=== PATIENT | male | born 1980 | race Caucasian/White ===

== ENCOUNTER 2025-07-29 13:10 | Emergency (ER) | payer OTHER, SELFPAY ==
[2025-07-29] VITALS (9 sets, daily range): BP systolic 130–174; BP diastolic 85–90; PULSE 68–84; RESP 11–17; TEMP 37.1; O2SAT 94–99; BMI 18.4
--- OUTSIDE RECORDS SUMMARY | 2025-07-29 13:13 | XMS_ITS | Clinical Summary ---
Author Organization [facility] Address [address] [place] [id number] Care Team Providers Care Claims Adjuster Supervisor Name Role Phone Sabi Tirado MD Unavailable VotelBertrand MD Unavailable Clinic, No Pcp Or Primary Care Provider Unavaila ble Allergies No known active allergies Medications cyclobenzaprine (FLEXERIL) 10 mg tabletIndication s:Neck pain Take 1 Tablet (10 mg) by mouth 3 times daily if needed for Muscle Spasm. 30 Tablet 1 08/08/2024 Active metoprolol succinate (TOPROL XL) 50 mg sustained-releas e tabletIndication s:Hypertension, unspecified type TAKE 2 TABLETS(100 MG) BY MOUTH EVERY DAY 180 Tablet 2 10/14/2024 Active sertraline 50 mg tabletIndication s:Anxiety Take 1 Tablet (50 mg) by mouth once daily in the morning. 90 Tablet 1 02/17/2025 Active Active Problems Problem Noted Date Diagnosed Date Anxiety 05/11/2018 Gastroesophageal reflux disease without esophagi tis 11/22/2016 HTN (hypertension) 09/27/2012 Immunizations Immunization Administration Dates Next Due Hepatitis B (Adult) 11/22/2016,10/20/2016 Tdap 06/26/2007 Tuberculin (PPD) 10/25/2016,10/11/2016 Family History Medical History Relation Name Comments No Known Problems Brother No Known Problems Father No Known Problems Mother Hyperlipidemia No Family History Hypertension No Family History Relation Name Status Comments Brother Alive Father Alive Mother Alive Social History Tobacco Use Types Packs/Day Years Used Date Smoking Tobacco: Never Smokeless Tobacco: Never Tobacco Cessation:Counseling Given: Yes Alcohol Use Standard Drinks/Week Comments Yes 0 (1 standard drink = 0.6 oz pur e alcohol) occ PHQ-2 Answer Date Recorded PHQ-2 TOTAL SCORE 1 10/04/2023 Social Connections Answer Date Recorded Do you often feel lonely or isolated from those around you? 0 08/08/2024 Financial Resource Strain Answer Date R ecorded Difficulty of Paying Living Expenses 3 08/08/2024 Difficulty of Paying Living Expenses Not on file 08/08/2024 Food Insecurity Answer Date Recorded Do you worry your food will run out before you are able to buy more? 1 08/08/2024 Transportation Needs Answer Date Record ed Does lack of transportation keep you from medica l appointments? 1 08/08/2024 Does lack of transportation keep you from work, meetings or getting things that you need? 1 08/08/2024 Housing Stability Answer Date Recorded What is your housing situation today? 1 08/08/2024 Utilities Answer Date Recorded Do you have trouble paying f or utilities (for example, heat, electricity, water, phone)? 1 08/08/2024 Sex and Gender Information Value Date Recorded Sex Assigned at Not on file Legal Sex Male 5:47 AM HEALTHCARE CONSULTANT Gender Identity Not on file Sexual Orientation Not on file Occupation Industry Job Start Date Job End Date Not on file Not on file Not on file Not on file Obstetrics History Last Filed Vital Signs Vital Sign Reading Time Taken Comments Blood Pressure 123/81 08/08/2024 3:23 PM HEALTHCARE CONSULTANT Pulse 81 08/08/2024 3:23 PM HEALTHCARE CONSULTANT Temperature 36.7 C (98 F) 06/03/2020 2:26 PM CDT Respiratory Rate - - Oxygen Saturation 97% 08/08/2024 3:23 PM HEALTHCARE CONSULTANT Inhaled Oxygen Concentration - - Weight 108.9 kg (240 lb) 08/08/2024 3:23 PM HEALTHCARE CONSULTANT Height 186.7 cm (6' 1.5) 08/08/2024 3:23 PM HEALTHCARE CONSULTANT Body Mass Index 31.23 08/08/2024 3:23 PM HEALTHCARE CONSULTANT Plan of Treatment Upcoming Encounters Date Type Department Care Team (Late st Contact Info) Description 08/06/2025 4:35 PM HEALTHCARE CONSULTANT Office Visit [facility] [place] [address] Bertrand Russo MD [address] [place] [address] Health Maintenance Due Date Last Done Comments HIV for age 15-65 12/27/1994 HPV series for age 9-45 (1 - 3-dose SCDM series) 12/27/2006 Hepatitis B series for 19+ (3 of 3 - 19+ 3-dose series) 04/19/2017 11/22/2016, 10/20/2016 Tetanus booster 06/26/2017 06/26/2007 Depression screening for age 12+ 10/04/2024 10/04/2023, 08/05/2022, 07/01/2021, Additional history exists Colonoscopy through age 75 12/27/2024 COVID-19 vaccine series ( season) 2025 Influenza Vaccine (#1) 2025 BMI (ht and wt on same day) for age 18+ 08/08/2025 08/08/2024, 11/02/2023, 10/04/2023, Additional history exists Lipids for age 45-75 10/04/2028 10/04/2023, 06/03/2020, 06/03/2020, Additional history exists RSV vaccine for adults or (1 - 1-dose 75+ series) 12/27/2054 Hepatitis C screening for age 18-79 Completed 05/25/2011 Pneumococcal series for age 6-49 Aged Out No longer eligible based on patient's age to complete this topic Procedures Procedure Name Priority Date/Time Associated Diagnosis Comments LIPID PANEL W REFLEX MEASURED LDL Routine 10/04/2023 4:38 PM HEALTHCARE CONSULTANT Hypertension, unspecified type ANTI HCV Routine 05/25/2011 7:04 AM CDT Abnormal laboratory test result from Last 3 Months or Most Recently Relevant to Health Maintenance Results * (ABNORMAL) LIPID PANEL W REFLEX MEASURED LDL (10/04/2023 4:38 PM HEALTHCARE CONSULTANT) CHOLESTEROL,TOTAL 264(H) 100 - 199 mg/dL 10/05/2023 2:38 PM HEALTHCARE CONSULTANT [facility] Comment: Cholesterol, Total Reference Ranges Desirable <200 mg/dL Borderline 200-239 mg/dL High >=240 mg/dL TRIGLYCERIDES 346(H) <150 mg/dL 10/05/2023 2:38 PM HEALTHCARE CONSULTANT [facility] HDL CHOLESTEROL 39(L) >40 mg/dL 2:38 PM HEALTHCARE CONSULTANT [facility] NON-HDL CHOLESTEROL 225(H) <145 mg/dl 10/05/2023 2:38 PM HEALTHCARE CONSULTANT [facility] CHOL/HDL RATIO 6.77(H) <4.50 10/05/2023 2:38 PM HEALTHCARE CONSULTANT [facility] LDL CHOLESTEROL 156(H) <=130 mg/dL 10/05/2023 2:38 PM HEALTHCARE CONSULTANT [facility] VLDL CHOLESTEROL 69(H) <=30 mg/dL 10/05/2023 2:38 PM HEALTHCARE CONSULTANT [facility] PROVIDER ORDERED STATUS RANDOM 10/05/2023 2:38 PM HEALTHCARE CONSULTANT [facility] Blood BLOOD SPECIMEN / Unknown Venipuncture / Unknown 10/04/2023 4:38 PM HEALTHCARE CONSULTANT 10/04/2023 4:38 PM HEALTHCARE CONSULTANT us Bertrand Russo MD CHEMISTRY Final Re sult [facility] [address] [place] [address], * ANTI HCV (05/25/2011 7:04 AM CDT) ANTI HCV Non-reacti ve [facility] Blood specimen (specimen) BLOOD SPECIMEN / Unknown 05/25/2011 7:04 AM CDT 05/25/2011 7:00 AM CDT us Nilsa Sterling MD SEND OUTS Fi nal Result [facility] [place]NAL ZIP [phone] [id number] from Last 3 Months or Most Recently Relevant to Health Maintenance Insurance [employer] Care Teams Claims Adjuster Supervisor Relationship Specialty Start Date End Date Clinic, No Pcp Or . PCP - General 10/20/22 Sabi Tirado MD Neurology Neurology 07/26/12 Bertrand Russo MD [address] [place] [address] Family Practice 10/20/22
--- NOTE | 2025-07-29 13:31 | ED.GENADULT ---
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 Since then he has been noticing some palpitations. He sometimes feels some sharp chest pains with these but he is not sure if that is just because he is thinking about it and gets nervous. He does not feel short of breath, lightheaded, has not had any fainting. No difference in exercise tolerance, exercises regularly without difficulty. Denies other symptoms such as fevers, weight loss, vomiting, diarrhea, black or bloody stools. Does not smoke or drink, denies any substances. No significant caffeine/energy drink use. He notices symptoms mostly when he is laying in bed or sitting quietly. They improve when he stops thinking about and focusing on it. Related Data Home Medications ?Medication ?Instructions ?Recorded ?Confirmed metoprolol succinate 50 mg 50 mg PO BID 07/29/25 07/29/25 tablet,extended release 24 hr sertraline 50 mg tablet 50 mg PO DAILY 07/29/25 07/29/25 Allergies Allergy/AdvReac Type Severity Reaction Status Date / Time No Known Drug Allergies Allergy Verified 07/29/25 13:18 Review of Systems Status of ROS: Reports: 10 or more systems reviewed and unremarkable except as noted in History and below [facility] Social History Smoking Status: Never smoker How often do you have a drink containing alcohol: monthly or less AUDIT-C Alcohol total score: 1 Non-prescribed substance use: denies use Exam Narrative: Exam Narrative: Vital signs reviewed In general, an alert, nontoxic manage male. Head: Normocephalic, atraumatic. Eyes: Sclera clear. Pupils equal and reactive. ENT: Mucous membranes moist. Neck: Supple without adenopathy. Heart: Regular rate and rhythm without murmur. Lungs: Clear. No increased work of breathing, crackles or wheezes. Abdomen: Soft, nontender to palpation. Extremities: Well perfused, pulses intact. No significant edema. Neurologic: Alert, conversant. Speech fluent, face symmetric. Moves all extremities equally. Skin: Warm, dry well perfused. Affect: Anxious. Const: Vital Signs, click to edit/add: Vital Signs - 24 hr 07/29/25 13:13 07/29/25 13:31 07/29/25 13:32 Temperature 98.8 F Pulse Rate Pulse Rate [Pulse Oximeter] 84 Respiratory Rate 16 16 Blood Pressure Blood Pressure [Ri ght Upper Arm] 174/90 H Pulse Oximetry 99 96 Oxygen Delivery Me thod 07/29/25 13:45 07/29/25 14:00 07/29/25 14:15 Temperature Pulse Rate 80 76 73 Pulse Rate [Pulse Oximeter] Respiratory Rate 14 17 11 L Blood Pressure Blood Pressure [Ri ght Upper Arm] Pulse Oximetry 96 94 94 Oxygen Delivery Me thod 07/29/25 14:30 07/29/25 14:45 07/29/25 14:52 Temperature Pulse Rate 73 68 82 Pulse Rate [Pulse Oximeter] Respiratory Rate 14 13 14 Blood Pressure 130/85 Blood Pressure [Ri ght Upper Arm] Pulse Oximetry 95 95 97 Oxygen Delivery Me thod Room Air Course Course ED Course: On arrival patient had an EKG which by my review shows a sinus rhythm, frequent PVCs. Ventricular rate of 88. No acute ST segment changes, unremarkable T-waves. Reviewed with him that his presentation sounds very suggestive of PVCs which are not dangerous but can be annoying. Will do some basic labs to rule out electrolyte abnormality, myocarditis, metabolic derangement. Maintain on monitor while here to make sure we do not see any signs of significant strings of PVCs, or other arrhythmia such as atrial fibrillation RP SVT. Notably, his watch has not picked up any significant changes in heart rate. Patient was maintained on the monitor here, we saw frequent PVCs but do not see any other arrhythmias. Labs are reviewed in their entirety and are normal. Reviewed with him that I suspect his sensation of palpitations or coming from these PVCs. We discussed that these are not harmful, he is already on metoprolol 50 mg a day as well as sertraline, for now I have encouraged him to continue those medications. Because he has been having this little bit of chest pain and is concerned about possibly blockages, I am ordering a stress test with results to be discussed with primary care at a follow-up appointment in the next week or so. Return any time for worsening or new symptoms such as fainting, severe persistent chest pain, significant shortness of breath etcetera. Diagnosis: PVCs. Palpitations. Chest pain. Vital Signs Vital signs: Initial Vital Signs Temperature 98.8 F 07/29/25 13:13 Temperature Source Temporal Artery Scan 07/29/25 13:13 Pulse Rate 84 07/29/25 13:13 Respiratory Rate 16 07/29/25 13:13 Blood Pressure 174/90 H 07/29/25 13:13 Blood Pressure Mean 118 H 07/29/25 13:13 Pulse Oximetry 99 07/29/25 13:13 Vital Signs Temperature 98.8 F 07/29/25 13:13 Pulse Rate 84 07/29/25 13:13 Respiratory Rate 16 07/29/25 13:13 Blood Pressure 174/90 H 07/29/25 13:13 Pulse Oximetry 99 07/29/25 13:13 Temperature 98.8 F 07/29/25 13:13 Pulse Rate 82 07/29/25 14:52 Respiratory Rate 14 07/29/25 14:52 Blood Pressure 130/85 07/29/25 14:52 Pulse Oximetry 97 07/29/25 14:52 Oxygen Delivery Method Room Air 07/29/25 14:52 Medical Decision Making Lab Data Labs: Lab Results 07/29/25 Range/Units 13:40 WBC 7.17 (4.50-11.00) K/uL RBC 5.26 (4.30-5.90) m/uL Hgb 15.6 (13.5-17.5) gm/dL Hct 44.9 (37.0-53.0) % MCV 85 (80-100) fL MCH 30 (26-34) pg MCHC 35 (32-36) gm/dL RDW Coeff of Penelope 11.6 (11.5-15.5) % Plt Count 246 (140-440) K/uL Neut % (Auto) 64.6 (42.0-72.0) % Lymph % (Auto) 24.7 (20-44) % [place] % (Auto) 8.2 (0.0-11.0) % Eos % (Auto) 1.8 (0.0-7.0) % Baso % (Auto) 0.4 (0.0-3.0) % Neut # (Auto) 4.63 (1.7-7.0) K/uL Lymph # (Auto) 1.77 (0.90-2.90) K/uL [place] # (Auto) 0.60 (0.00-0.90) K/UL Eos # (Auto) 0.13 (0.00-0.50) K/uL Baso # (Auto) 0.03 (0.00-0.30) K/uL Abs Immat Gran (auto) 0.02 (0.00-0.30) K/uL Imm/Tot Granulo (auto) 0.3 % Sodium 136 (135-149) mmol/L Potassium 3.9 (3.6-5.1) mmol/L Chloride 98 (96-114) mmol/L Carbon Dioxide 26 (20-32) mmol/L Anion Gap 12 (7-15) mEq/L BUN 12 (5-24) mg/dL Creatinine 1.1 (0.5-1.5) mg/dL Estimated Creat Clear 75.74 Estimated GFR 84 ml/min Glucose 107 (60-115) mg/dL Calcium 9.4 (8.4-10.6) mg/dL Magnesium 1.8 (1.5-2.6) mg/dL Total Bilirubin 0.9 (0.1-1.5) mg/dL AST 32 (12-35) U/L ALT 44 (4-50) U/L Alkaline Phosphatase 68 (40-150) U/L Troponin I < 0.01 (0.01-0.04) ng/mL Total Protein 7.5 (6.0-8.3) g/dL Albumin 4.6 (3.3-5.0) g/dL TSH 1.260 (0.270-4.200) uIU/mL Discharge Plan Discharge Clinical Impression: Frequent PVCs Patient Disposition: Home, Self-Care Condition: Stable Instructions: Premature Ventricular Contractions (ED) Additional Instructions: Your workup today does not show any concerning findings. Your electrolytes, heart function, kidney function etcetera are all normal. On the monitor, we see frequent premature ventricular contractions which I think is almost certainly the reason you are feeling what you are feeling. These are not dangerous and do not indicate a problem with your heart. For now I would continue your metoprolol. Because you have been having a little bit of chest pain, I am going to order a stress test. Please follow-up with your primary doctor to discuss results of your stress test. If you have new symptoms such as severe or persistent chest pain, shortness of breath, fainting, return to the emergency department at any time. Prescriptions: No Action metoprolol succinate 50 mg tablet extended release 24 hr 50 mg PO BID sertraline 50 mg tablet 50 mg PO DAILY Follow Up/Referrals: Bertrand Russo MD [Primary Care Provider, Family Practice] Stand Alone Forms: [place] Info Instructions
[2025-07-29 13:58] LABS: Hematocrit* 44.9 % (37.0-53.0); Hemoglobin* 15.6 gm/dL (13.5-17.5); Immature Granulocytes Abs Auto 0.02 K/uL (0.00-0.30); Immature Granulocytes Pct Auto 0.3 %; Lymphocytes Absolute Auto 1.77 K/uL (0.90-2.90); Mean Corpuscular HGB Conc 35 gm/dL (32-36); Mean Corpuscular Hemoglobin 30 pg (26-34); Mean Corpuscular Volume 85 fL (80-100); RDW Coefficient of Variation % 11.6 % (11.5-15.5); Red Blood Count* 5.26 m/uL (4.30-5.90); White Blood Count* 7.17 K/uL (4.50-11.00)
[2025-07-29 14:08] LABS: Albumin* 4.6 g/dL (3.3-5.0); Chloride* 98 mmol/L (96-114); Potassium* 3.9 mmol/L (3.6-5.1); Sodium* 136 mmol/L (135-149)
[2025-07-29 14:10] LABS: Alanine Aminotransferase* 44 U/L (4-50); Aspartate Amino Transferase* 32 U/L (12-35); Blood Urea Nitrogen* 12 mg/dL (5-24); Creatinine* 1.1 mg/dL (0.5-1.5); Est. Creatinine Clearance* 75.74; Estimated Glomerular Filt Rate 84 ml/min
[2025-07-29 14:11] LABS: Alkaline Phosphatase* 68 U/L (40-150); Anion Gap 12 mEq/L (7-15); Bilirubin Total* 0.9 mg/dL (0.1-1.5); Calcium* 9.4 mg/dL (8.4-10.6); Carbon Dioxide* 26 mmol/L (20-32); Glucose* 107 mg/dL (60-115); Total Protein* 7.5 g/dL (6.0-8.3)
[2025-07-29 14:13] LABS: Slide Review Reflex No
[2025-07-29 15:02] LABS: TSH With Reflex to FT4* 1.260 uIU/mL (0.270-4.200)
== END 2025-07-29 15:35 | disposition home or self-care (01) ==
PROVIDERS: Emergency Provider Emergency Medicine; PCP Family Medicine
DX: I49.3 Ventricular premature depolarization (principal)
CPT/HCPCS: 36415; 80053; 83735; 84443; 84484; 85025; 93005; 94761; 99284; 99285